=== PATIENT | male | born 2005 | race Caucasian/White ===

== ENCOUNTER → 2023-01-05 | Outpatient (CLI) | payer OTHER, SELFPAY ==
[2023-01-05 13:00] LABS: AST(SGOT) 15 U/L (15-37); Alanine Aminotransfer ALT/SGPT 13 U/L (16-61); Cholesterol 192 mg/dL (200); Triglycerides 97 mg/dL
== END | disposition home or self-care (01) ==
DX: Z79.899 Other long term (current) drug therapy (principal)
CPT/HCPCS: 36415; 82465; 84450; 84460; 84478

== ENCOUNTER → 2023-02-05 | Outpatient (CLI) | payer OTHER, SELFPAY ==
[2023-02-05 10:46] LABS: AST(SGOT) 26 U/L (15-37); Alanine Aminotransfer ALT/SGPT 18 U/L (16-61); Cholesterol 205 mg/dL (200); Triglycerides 194 mg/dL
== END | disposition home or self-care (01) ==
DX: L70.0 Acne vulgaris (principal); Z79.899 Other long term (current) drug therapy
CPT/HCPCS: 36415; 82465; 84450; 84460; 84478

== ENCOUNTER 2023-03-05 09:07 | Outpatient (RCR) | payer OTHER, SELFPAY ==
[2023-03-05 10:37] LABS: AST(SGOT) 23 U/L (15-37); Alanine Aminotransfer ALT/SGPT 25 U/L (16-61); Cholesterol 238 mg/dL (200); Triglycerides 139 mg/dL
== END 2023-03-31 01:08 | disposition home or self-care (01) ==
LOC: LAB 09:07
DX: L70.0 Acne vulgaris (principal); Z79.899 Other long term (current) drug therapy
CPT/HCPCS: 36415; 82465; 84450; 84460; 84478